=== PATIENT | female | born 1960 | race Caucasian/White ===

== ENCOUNTER → 2017-11-26 10:43 | Outpatient (CLI) | payer MEDICARE, SELFPAY ==
--- NOTE | 2017-11-26 10:50 | MR_ITS ---
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 FINDINGS: No midline shift, mass effect, or cranial hemorrhage, or hydrocephalus. There is generalized atrophy. Atrophy is somewhat greater involving the anterior aspect of the temporal horns more prominent on the right with encephalomalacia changes along the right sylvian region of the temporal horn and posterior frontal and parietal lobe consistent with an old infarction. No abnormal enhancement. There is an oval area of increased T1 and T2 signal in the left external capsule measuring 12 mm in length. This does not show restricted diffusion or enhancement and could be sequela from an old lacunar infarction. A small area of hemorrhage is not completely excluded. A linear area of increased T1 signal is noted medial to this within the body of the caudate nucleus of similar imaging characteristics. The cerebellopontine angles, cerebellum, and brainstem are unremarkable. The pituitary, optic chiasm, and corpus callosum are unremarkable. Craniocervical junction has an unremarkable appearance. IMPRESSION: 1. Atrophy with chronic ischemic gliotic changes with encephalomalacia change of the right temporal lobe and sylvian region consistent with old infarction. 2. Nonspecific increased T1 and T2 signal within the left basal ganglia and could be sequela from an old infarction. Hemorrhage is felt to be less likely but not totally excluded. Unenhanced CT scan of the head therefore suggested for confirmation.
--- NOTE | 2017-11-26 11:54 | HMH.ITSHM ---
ZIPRASIDONE 60MG LISNOP + HcT2 CITAOLPRAM 40MG OMEPRAZOLE 20MG METFORMIN 500MG
== END ==
PROVIDERS: Family Provider Nurse Practitioner Family; Visit Provider Nurse Practitioner Family
DX: Z86.73 Personal history of transient ischemic attack (TIA), and cerebral infarction without residual deficits (principal); R45.1 Restlessness and agitation; F33.3 Major depressive disorder, recurrent, severe with psychotic symptoms
CPT/HCPCS: 70553; A9576

== ENCOUNTER → 2020-06-01 07:54 | Outpatient (CLI) | payer MEDICARE, SELFPAY ==
--- NOTE | 2020-06-01 07:59 | CA_ITS ---
APPROVED REPORT [employer]: Milena Sotelo RVT Study Quality: Good Indications: HTN Risk Factors Hypertension Obesity Renal Artery Doppler Proximal (R) 142.5/ cm/sec Mid (R) 132.2/ cm/sec Distal (R) 104.4/ cm/sec Renal Aorta Ratio (R) 1.37 Segmental A. (R) 50.7/12.9 cm/sec RI: 0.74 Segmental A. Sup (R) 43.4/8.8 cm/sec Segmental A. Mid (R) 50.7/12.9 cm/sec Segmental A. Inf (R) 39.4/11.3 cm/sec Proximal (L) 166.0/ cm/sec Mid (L) 153.6/ cm/sec Distal (L) 83.2/ cm/sec Renal Aorta Ratio (L) 1.60 Segmental A. (L) 61.9/18.1 cm/sec RI: 0.70 Segmental A. Sup (L) 46.9/16.0 cm/sec Segmental A. Mid (L) 61.9/18.1 cm/sec Segmental A. Inf (L) 48.0/18.1 cm/sec Renal Measurements Kidney Size (R) 8.9x5.2 cm Cortical Thickness (R) 0.9 cm Kidney Size (L) 10.0x7.4 cm Cortical Thickness (L) 1.0 cm Findings Study suggests no evidence of renal artery stenosis of the bilateral renal artery. ? mild hydronephrosis of the left kidney. Electronically signed by : Oswaldo Sheikh, 06/01/2020 08:52:39
== END ==
PROVIDERS: PCP Nurse Practitioner Family; Visit Provider Nurse Practitioner Family
DX: I10 Essential (primary) hypertension (principal)
CPT/HCPCS: 93976

== ENCOUNTER → 2022-10-18 11:30 | Outpatient (CLI) | payer MEDICARE, MEDICAID, SELFPAY ==
[2022-10-18 12:33] LABS: Alanine Aminotransferase 41 U/L (12-78); Albumin Level 4.8 g/dl (3.5-5.0); Albumin/Globulin Ratio 1.7 (1.1-1.8); Alkaline Phosphatase 149 U/L (38-126); Aspartate Amino Transferase 41 U/L (14-36); Bilirubin,Total 0.3 mg/dl (0.2-1.3); Blood Urea Nitrogen 23 mg/dl (7-17); Calcium 10.5 mg/dl (8.4-10.2); Carbon Dioxide 25 mmol/L (22.0-30.0); Chloride 103 mmol/L (98-107); Chol/HDL Ratio 3.7 (1-3.5); Cholesterol 140 mg/dl (140-200); Estimated Glomerular Filt Rate 30 ml/min (>60); GFR (African American) 37 ML/MIN (>60); Globulin 2.8 g/dL (1.3-3.2); Glucose 151 mg/dl (74-100); HDL Cholesterol 38 mg/dl (40-60); Sodium 141 mmol/L (136-145); Total Protein,Serum 7.6 g/dl (6.3-8.2); Triglycerides 270 mg/dl (30-150); VLDL Cholesterol 54 mg/dL (0-40)
[2022-10-18 12:44] LABS: Direct LDL Cholesterol 58.27 mg/dL (100-129)
[2022-10-18 19:23] LABS: Hemoglobin A1C 6.7 % (4.0-6.0)
== END ==
PROVIDERS: PCP Family Medicine; Visit Provider Family Medicine
DX: E11.9 Type 2 diabetes mellitus without complications (principal); I10 Essential (primary) hypertension; E78.5 Hyperlipidemia, unspecified; Z79.84 Long term (current) use of oral hypoglycemic drugs
CPT/HCPCS: 36415; 80053; 80061; 83036

== ENCOUNTER 2024-10-19 11:43 | Outpatient (CLI) | payer MEDICARE, SELFPAY ==
--- NOTE | 2024-10-19 11:47 | XR_ITS ---
FINAL REPORT CLINICAL HISTORY: HIP PAIN right side FINDINGS: RIGHT HIP 3 views of the right hip demonstrate no acute fracture or dislocation. There are moderate degenerative changes of the right hip. The visualized bony structures are well aligned. No soft tissue abnormality is seen. A pessary device is noted. Incidentally noted are severe degenerative changes of the lower lumbar spine. IMPRESSION: Degenerative changes without acute bony abnormality. Reviewed, Interpreted and Dictated by Yajaira Nava MD Transcribed by Hanna Kauffman Authenticated and [facility][1]
== END 2024-10-19 23:59 | disposition home or self-care (01) ==
LOC: RAD 11:44
PROVIDERS: PCP Family Medicine; Visit Provider Family Medicine
DX: M25.551 Pain in right hip (principal)
CPT/HCPCS: 73502